=== PATIENT | male | born 1980 | race Caucasian/White ===

== ENCOUNTER 2020-06-30 12:44 | Emergency (ER) | payer MEDICAID, OTHER, SELFPAY ==
[2020-06-30 13:51] VITALS: BP 175/95; PULSE 88; RESP 18; TEMP 37.1; O2SAT 97; BMI 26.6
--- NOTE | 2020-06-30 14:07 | US_ITS ---
EXAMINATION: US ABDOMEN COMPLETE CLINICAL INFORMATION: [Abdominal/flank pain.. COMPARISON: None TECHNIQUE: Real-time imaging of the abdominal viscera. FINDINGS: PANCREAS: Normal. ABDOMINAL AORTA: The proximal, mid, and distal segments are normal in caliber. INFERIOR VENA CAVA: Visualized portions are normal. LIVER: The liver is normal in size. The liver contour is normal. Parenchymal echogenicity is diffusely increased. No focal hepatic lesion. There is no intrahepatic biliary duct dilatation seen. GALLBLADDER: There are small echogenic mobile gallstones without wall thickening. COMMON BILE DUCT: Normal in caliber measuring 0.35 cm in diameter. RIGHT KIDNEY: Normal. No hydronephrosis. No renal calculi or focal parenchymal lesions. The kidney measures 12.9 cm in maximum dimension. LEFT KIDNEY: Normal. No hydronephrosis. No renal calculi or focal parenchymal lesions. The kidney measures 14.1 cm in maximum dimension. SPLEEN: Normal. The spleen measures 14.3 cm in maximum dimension. There is a small splenule measuring 2.5 x 2.2 x 2.3 cm. FREE FLUID: None. US/US abdomen complete IMPRESSION: Diffuse hepatic steatosis without focal lesion. No focal lesion or intrahepatic ductal dilatation. Cholelithiasis without wall thickening. Small accessory splenule measuring 2.5 cm. Rest of the abdominal ultrasound is unremarkable.
[2020-06-30 14:37] LABS: Basophils Absolute Auto 0.1 X10*3/uL (0.0-0.2); Basophils Percent Auto 0.8 % (0-2); Eosinophils Absolute Auto 0.1 X10*3/uL (0.0-0.4); Eosinophils Percent Auto 1.6 % (0-4); Hematocrit 40.6 % (42-52); Hemoglobin 13.7 g/dl (14.0-18.0); Imm Gran Abs Auto 0.02 X10*3/uL (0.00-0.03); Imm Gran Pct Auto 0.3 % (0.0-0.4); Lymphocytes Absolute Auto 2.4 X10*3/uL (1.2-4.9); Lymphocytes Percent Auto 37.4 % (20-40); MANUAL DIFF FLAG NO; Mean Corpuscular HGB Conc 33.7 g/dl (31.0-36.0); Mean Corpuscular Hemoglobin 29.6 pg (27.0-33.0); Mean Corpuscular Volume 87.7 fL (80-98); Mean Platelet Volume 9.8 fL (9.4-12.4); Monocytes Absolute Auto 0.4 X10*3/uL (0.1-1.2); Monocytes Percent Auto 6.4 % (2-11); Neutrophils Absolute Auto 3.5 X10*3/uL (2.0-8.3); Neutrophils Percent Auto 53.5 % (45-73); Platelet Count 179 X10*3/uL (160-400); Red Blood Count 4.63 X10*6/uL (4.60-5.80); White Blood Count 6.4 X10*3/uL (4.8-10.8)
--- NOTE | 2020-06-30 14:38 | PC.NURSE ---
labs drawn pt sent to us
--- NOTE | 2020-06-30 14:41 | PC.NURSE ---
PT TO RADIOLOGY
[2020-06-30 15:08] LABS: Alanine Aminotransferase 55 U/L (0-40); Albumin Level 4.6 g/dL (3.5-5.0); Alkaline Phosphatase 91 U/L (39-117); Anion Gap 13 (12-20); Aspartate Amino Transferase 44 U/L (5-37); Bilirubin Total 1.4 mg/dL (0.0-1.0); Blood Urea Nitrogen 13 mg/dL (9-16); Calcium 9.2 mg/dL (8.4-10.2); Carbon Dioxide 25 mmol/L (22-29); Chloride 105 mmol/L (96-108); Estimated Glomerular Filt Rate > 60; Glucose Random 130 mg/dL (60-115); Potassium 3.9 mmol/l (3.3-5.1); Sodium 139 mmol/L (135-145); Total Protein 7.9 g/dL (6.5-8.0)
--- NOTE | 2020-06-30 15:34 | ED.ABDPAIN ---
HPI - Abdominal Pain General Chief Complaint: Abdominal Pain Stated Complaint: abd pain Time Seen by Provider: 06/30/20 14:07 Source: patient Mode of arrival: ambulatory Limitations: no limitations History of Present Illness HPI narrative: This is a pleasant 40-year-old primarily Urdu-speaking male who is from [facility] reports to me that he is a former drinker drink regularly up until about a year and half ago he has been sober since and has been doing well otherwise reports over the past 4 months or so has been having intermittent upper abdominal pain in the epigastrium that feels like aching pressure sometimes sometimes feel bloated after eating. States eating is only thing that makes it worse and sometimes it does feel like it is burning like sensation. There are no other aggravating factors. Alleviating factors include decreased p.o. intake otherwise he has not tried any OTC. He denies any nausea vomiting or diarrhea. No fever. Again history of alcohol intake but has been sober for over a year. MD elicited complaint: abdominal pain Pertinent past history: none Onset (ago): month(s) Pain Consistency: intermittent Location: epigastric Severity: moderate Quality: burning and other Radiation: none Migration to: no migration Exacerbating factors: eating Relieving factors: rest Associated symptoms: denies other symptoms Related Data Previous Rx's Medication Instructions Recorded omeprazole magnesium [Prilosec OTC] 20 mg PO BID #14 tab 06/30/20 Allergies Allergy/AdvReac Type Severity Reaction Status Date / Time No Known Allergies Allergy Verified 06/30/20 14:07 Review of Systems Review of Systems Constitutional: No Weight loss, No Fever, No Chills, No Night Sweats, No Fatigue, No Malaise ENT/Mouth: No Hearing loss, No Ear Pain, No Nasal Congestion, No Sinus Pain, No Hoarseness, No sore throat, No Rhinorrhea, No Swallowing Difficulty Eyes: No Eye Pain, No Swelling, No Redness, No Foreign Body, No Discharge, No Vision Changes Cardiovascular: No Chest Pain, No SOB, No Dyspnea on Exertion, No Orthopnea, No Edema, No Palpitations Respiratory: No Cough, No Sputum, No Wheezing, No Smoke Exposure, No Dyspnea Gastrointestinal: As noted HPI, No Hematochezia, No Melena Genitourinary: No Dysuria, No Urinary Frequency, No Hematuria, No Urinary Incontinence, No Urgency, No Flank Pain, No Urinary Flow Changes, No Hesitancy Musculoskeletal: No joint pain, No Myalgias, No Joint Swelling Skin: No Skin Lesions, No rash Neuro: No Weakness, No Numbness, No Paresthesias, No Loss of Consciousness, No Dizziness, No Headache Psych: No Anxiety/Panic, No Depression Heme/Lymph: No Bruising, No Bleeding,No Lymphadenopathy Endocrine: No Polyuria, No Polydipsia, No Temperature Intolerance Yes all other systems are reviewed and are negative Physical Exam Vital Signs: Vital Signs: Last Vital Signs Temp 98.7 F 06/30/20 15:42 Pulse 86 06/30/20 15:42 Resp 16 06/30/20 15:42 BP 160/95 H 06/30/20 15:42 Pulse Ox 96 06/30/20 15:42 Body Mass Index 26.6 Reviewed Const: General: cooperative and comfortable; No acute distress or intoxicated appearing Nutritional Appearance: average body habitus Orientation/consciousness: patient oriented x3 HENMT: Head: Yes normal to inspection Ears: hearing grossly normal bilaterally Eyes: General: appearance normal, both eyes and all related structures Visual Benz: normal visual benz by confrontation Neck: Neck: Yes normal visual inspection and No tender Thyroid: Thyroid normal Chest: Chest palpation & inspection: normal inspection of the chest Resp: Effort & Inspection: normal respiratory effort Cardio: Jugular venous distension: no JVD Rhythm: regular rhythm GI: Inspection: Yes normal to inspection Palpation (GI): Soft to palpation, not firm, nontender, no guarding, hepatosplenomegaly present, no hepatosplenomegaly, no masses, no pulsatile masses, no aortic enlargement, No Ascites present and No Rebound tenderness present Percussion: Yes normal to percussion Auscultation: normal bowel sounds : General: Yes no CVA tenderness Back/Spine/Pelvis: Back: no CVA tenderness Skin: General skin exam: no rashes or lesions noted Neuro: General: patient oriented x3 Extrem: General: Yes normal to inspection MDM - Abdominal Pain MDM Narrative Medical decision making narrative: left shows slight elevation in the AST / ALT consistent with his prior alcohol history otherwise labs stable. Ultrasound with no acute findings. Will start on short course PPI with instructions follow-up with GI. He does tell me that he does not have a primary care currently a list was provided for or PCP septic new patients. Patient agreeable. Stable for discharge. Differential Diagnosis Differential diagnosis: Likely abdominal pain and gastritis; Unlikely aortic dissection, acute appendicitis, bowel perforation, calculus of kidney, constipation, diverticulitis, gastroenteritis, mesenteric ischemia, pancreatitis and small bowel obstruction Lab Data Result diagrams: 06/30/20 14:32 06/30/20 14:32 Labs: Lab Results 06/30/20 06/30/20 06/30/20 Range/Units 14:32 14:32 15:44 WBC 6.4 (4.8-10.8) X10*3/uL RBC 4.63 (4.60-5.80) X10*6/uL Hgb 13.7 L (14.0-18.0) g/dl Hct 40.6 L (42-52) % MCV 87.7 (80-98) fL MCH 29.6 (27.0-33.0) pg MCHC 33.7 (31.0-36.0) g/dl RDW 13.0 (11.0-16.0) % Plt Count 179 (160-400) X10*3/uL MPV 9.8 (9.4-12.4) fL Immature Gran % (Auto) 0.3 (0.0-0.4) % Neut % (Auto) 53.5 (45-73) % Lymph % (Auto) 37.4 (20-40) % [place] % (Auto) 6.4 (2-11) % Eos % (Auto) 1.6 (0-4) % Baso % (Auto) 0.8 (0-2) % Lymph # (Auto) 2.4 (1.2-4.9) X10*3/uL [place] # (Auto) 0.4 (0.1-1.2) X10*3/uL Eos # (Auto) 0.1 (0.0-0.4) X10*3/uL Baso # (Auto) 0.1 (0.0-0.2) X10*3/uL Abs Immat Gran (auto) 0.02 (0.00-0.03) X10*3/uL Absolute Neuts (auto) 3.5 (2.0-8.3) X10*3/uL Absolute Nucleated RBC 0.000 (0.0-0.012) X10*3/uL Nucleated RBC % (auto) 0.0 (0.0-0.2) /100WBC Sodium 139 (135-145) mmol/L Potassium 3.9 (3.3-5.1) mmol/l Chloride 105 (96-108) mmol/L Carbon Dioxide 25 (22-29) mmol/L Anion Gap 13 (12-20) BUN 13 (9-16) mg/dL Creatinine 0.78 (0.5-1.4) mg/dL Estim Creat Clear Calc 123.0 Estimated GFR > 60 Random Glucose 130 H (60-115) mg/dL Calcium 9.2 (8.4-10.2) mg/dL Total Bilirubin 1.4 H (0.0-1.0) mg/dL AST 44 H (5-37) U/L ALT 55 H (0-40) U/L Alkaline Phosphatase 91 (39-117) U/L Total Protein 7.9 (6.5-8.0) g/dL Albumin 4.6 (3.5-5.0) g/dL Urine Color YELLOW Urine Appearance CLEAR Urine pH 8.5 H (5.0-8.0) Ur Specific [place] 1.015 (1.005-1.025) Urine Protein NEG (NEG-TRACE) MG/DL Urine Glucose (UA) NEG (NEG) MG/DL Urine Ketones NEG (NEG) MG/DL Urine Blood NEG (NEG) Urine Nitrite NEG (NEG) Ur Leukocyte Esterase NEG (NEG) Urine RBC 0 (0) /HPF Urine WBC 0 (0-4) /HPF Ur Squamous Epith Cells TRACE /LPF Amorphous Sediment 2+ /LPF Urine Bacteria NONE /LPF Discharge Plan Discharge Clinical Impression: Gastroesophageal reflux disease, Upper abdominal pain Patient Disposition: Home, Self-Care Instructions: Abdominal Pain (ED) Additional Instructions: Follow home care instructions reviewed Follow up with her primary care doctor as discussed Follow-up with GI doctor discussed Start short course of the antacid medication prescribed Return if any concerns or worsening symptoms Thank you Prescriptions: New omeprazole magnesium [Prilosec OTC] 20 mg tablet,delayed release (DR/EC) 20 mg PO BID Qty: 14 RF: 0 Referrals: Babita Lal MD [Physician] - 2 weeks Physician,None [Primary Care Provider] - 1 week (Primary care doctor List provided ) Interventions: ED Discharge Assessment Last Done: 06/30/20 17:15 Discharge Date/Time: 06/30/20 17:15 [facility] Past Medical History Medical History No significant past medical history Social History Social History Alcohol intake: former Smoking Status: Current every day smoker Use of substances other than those prescribed or required for medical reasons: No Advance Directives: No Advance Directives Information Provided: No
[2020-06-30 15:42] VITALS: BP 160/95; PULSE 86; RESP 16; TEMP 37.1; O2SAT 96
[2020-06-30 15:59] LABS: Appearance Urine CLEAR; Color Urine YELLOW; Glucose Urine UA NEG (NEG); Leukocyte Esterase Urine NEG (NEG); Nitrite Urine NEG (NEG); PH 8.5 (5.0-8.0); Specific Gravity - Urine 1.015 (1.005-1.025); Urine Blood NEG (NEG); Urine Ketones NEG (NEG); Urine Protein NEG (NEG-TRACE)
[2020-06-30 16:53] LABS: RBC Urine 0 /HPF (0); Squamous Epithelial Cell Urine TRACE /LPF; WBC Urine 0 /HPF (0-4)
[2020-06-30 16:54] LABS: Amorphous Sediment Urine 2+ /LPF
== END 2020-06-30 17:15 | disposition home or self-care (01) ==
PROVIDERS: Nurse Practitioner Primary Care; Emergency Provider Emergency Medicine Emergency Medical Services
DX: K21.9 Gastro-esophageal reflux disease without esophagitis (principal); F17.200 Nicotine dependence, unspecified, uncomplicated
CPT/HCPCS: 36415; 76700; 80053; 81001; 85025; 99284

== ENCOUNTER 2022-10-17 15:41 | Emergency (ER) | payer OTHER, MEDICAID, SELFPAY ==
--- NOTE | ~2022-10-17 | CT_ITS ---
EXAMINATION: CT HEAD WITHOUT CONTRAST CLINICAL INFORMATION: Hypertension and headache. COMPARISON: None. TECHNIQUE: Contiguous axial imaging was performed from the skullbase to vertex without intravenous administration of contrast. This CT examination was performed using dose optimization techniques as appropriate, variously including the following: *Automated exposure control *Adjustment of mA and/or kV according to patient size (this includes techniques or standardized protocols for targeted exams where dose is matched to indication/reason for exam; i.e. extremities or head) *Use of iterative reconstruction technique DLP: 901 mGy-cm. FINDINGS: There is no evidence of acute intracranial hemorrhage or territorial infarction. No abnormal mass effect or midline shift is seen. Pedro to white matter differentiation is well preserved. No extra-axial fluid collections are identified. The ventricles are normal in size. There is no abnormal attenuation within the brain parenchyma. The osseous structures and soft tissues are normal. The mastoid air cells and visualized portions of the paranasal sinuses are fairly well aerated. CT/CT head/brain wo IV con IMPRESSION: No acute intracranial pathology.
--- NOTE | 2022-10-17 16:00 | ECG_ITS ---
Test Reason : HYPERTENSION Blood Pressure : / mmHG Vent. Rate : 068 BPM Atrial Rate : 068 BPM P-R Int : 188 ms QRS Dur : 110 ms QT Int : 376 ms P-R-T Axes : 008 -33 021 degrees QTc Int : 399 ms Normal sinus rhythm Left axis deviation Incomplete right bundle branch block Minimal voltage criteria for LVH, may be normal variant ( Ernesto product ) Abnormal ECG No previous ECGs available Referred By: Miguel Paula Electronically Signed By:LINCOLN ZARATE MD
--- NOTE | 2022-10-17 16:03 | ED.GENADULT ---
HPI - General Adult General Chief complaint: Headache <HODAN Arreola - Last Filed: 10/17/22 16:07> Stated complaint: high blood pressure/ headache <HODAN Arreola - Last Filed: 10/17/22 16:07> Time Seen by Provider: 10/17/22 21:45 <HODAN Arreola - Last Filed: 10/17/22 16:07> Source: patient <Ilda Currie NP - Last Filed: 10/18/22 01:48> Mode of arrival: ambulatory <Ilda Currie NP - Last Filed: 10/18/22 01:48> Limitations: language barrier <Ilda Currie NP - Last Filed: 10/18/22 01:48> History of Present Illness HPI narrative: 42-year-old male presents with 3 weeks of a headache and suspected elevated blood pressures with blurred vision. Patient states he is having a hard time focusing his eyes. Patient is Arabic-speaking, and does not have a primary care physician at this time. Does not report any other concerns, and denies chest pain or pressure, palpitations, shortness of breath, fevers, chills, loss of balance and weakness. <Ilda Currie NP - Last Filed: 10/18/22 01:48> Onset (ago): week(s) (3) <Ilda Currie NP - Last Filed: 10/18/22 01:48> Location: head and eyes <Ilda Currie NP - Last Filed: 10/18/22 01:48> Radiation: non-radiation <Ilda Currie NP - Last Filed: 10/18/22 01:48> Severity: mild <Ilda Currie NP - Last Filed: 10/18/22 01:48> Severity scale (1-10): 3 <Ilda Currie NP - Last Filed: 10/18/22 01:48> Quality: aching <Ilda Currie NP - Last Filed: 10/18/22 01:48> Pain Consistency: constant <Ilda Currie NP - Last Filed: 10/18/22 01:48> Relieving factors: none <Ilda Currie NP - Last Filed: 10/18/22 01:48> Associated symptoms: denies other symptoms <Ilda Currie NP - Last Filed: 10/18/22 01:48> Treatments prior to arrival: NSAID and other (Tylenol) <Ilda Currie NP - Last Filed: 10/18/22 01:48> Related Data Home medications: Previous Rx's Medication Instructions Recorded omeprazole magnesium 20 mg 20 mg PO BID #14 tabs 06/30/20 tablet,delayed release (Prilosec OTC) lisinopril 5 mg tablet 5 mg PO DAILY #30 tabs 10/17/22 <HODAN Arreola - Last Filed: 10/17/22 16:07> Allergies/adverse reactions: Allergies Allergy/AdvReac Type Severity Reaction Status Date / Time No Known Allergies Allergy Verified 06/30/20 14:07 <HODAN Arreola Last Filed: 10/17/22 16:07> Review of Systems Review of Systems: Constitutional: No Fever, No Chills ENT/Mouth: No Ear Pain, No Hoarseness, No sore throat Eyes: Intermittently resolved blurred Eye Pain, No Swelling, No Redness, No Foreign Body Cardiovascular: No Chest Pain, No SOB Respiratory: No Cough, No Dyspnea Gastrointestinal: No Nausea, No Vomiting, No Diarrhea, No abdominal Pain Genitourinary: No Dysuria, No Hematuria Musculoskeletal: No joint pain, No Myalgias, No Joint Swelling Skin: No Skin lacerations, No rash Neuro: No Weakness, No Numbness, No Paresthesias, No Dizziness, although Headache <Ilda Currie NP - Last Filed: 10/18/22 01:48> Yes all other systems are reviewed and are negative <Ilda Currie NP - Last Filed: 10/18/22 01:48> PMFSH Past Medical History Attestation statement: The following information was validated with the patient. <Ilda Currie NP - Last Filed: 10/18/22 01:48> Source: old records reviewed <Ilda Currie NP - Last Filed: 10/18/22 01:48> Medical History: Medical History No significant past medical history <HODAN Arreola - Last Filed: 10/17/22 16:07> Social History Social History: Social History Alcohol intake: former Advance Directives: No Advance Directives Information Provided: No <HODAN Arreola - Last Filed: 10/17/22 16:07> Physical Exam ED Vital Signs: Vital Signs - 24 hr 10/17/22 16:04 10/17/22 21:05 Temperature 98.0 F Pulse Rate 79 64 Respiratory Rate 17 16 Blood Pressure 172/91 H 166/96 H Pulse Oximetry 99 99 Oxygen Delivery Method Room Air Room Air BMI result Body Mass Index 32.8 <HODAN Arreola - Last Filed: 10/17/22 16:07> Vital Signs - 24 hr 10/17/22 16:04 10/17/22 21:05 Temperature 98.0 F Pulse Rate 79 64 Respiratory Rate 17 16 Blood Pressure 172/91 H 166/96 H Pulse Oximetry 99 99 Oxygen Delivery Method Room Air Room Air BMI result Body Mass Index 32.8 <Ilda Currie NP - Last Filed: 10/18/22 01:48> Appearance: Alert. Oriented X3. No acute distress. Eyes: Pupils equal, round and reactive to light. ENT: Pharynx normal. Neck: Normal inspection. Neck supple. CVS: Normal heart rate and rhythm. Pulses normal. Respiratory: No respiratory distress. Breath sounds normal. Skin: Skin warm and dry. Normal skin color. Normal skin turgor. Extremities: No lower extremity edema. Ate well balanced well coordinated. Neuro: No motor deficit. No sensory deficit. Cranial nerves 2-12 intact <Ilda Currie NP - Last Filed: 10/18/22 01:48> Course Course Course Narrative: This is an RME: Additional HPI, ROS, PE not included below will be deferred to primary provider. 42 year old male hx of GERD presents to the ED for evaluation of headache (diffuse) x3 weeks, patient thinks he may have high blood pressure. When his head hurts he reports his vision changes and he has a hard time focusing in on an object. At times feels lightheaded. Denies fevers, chills, nausea, vomiting, headache, vision changes, chest pain, shortness of breath. Last saw a doctor 1 year ago he tells me Physical exam benign. NIH stroke scale 0. Plan- head ct, basic labs. <HODAN Arreola - Last Filed: 10/17/22 16:07> This is an RME: Additional HPI, ROS, PE not included below will be deferred to primary provider. 42 year old male hx of GERD presents to the ED for evaluation of headache (diffuse) x3 weeks, patient thinks he may have high blood pressure. When his head hurts he reports his vision changes and he has a hard time focusing in on an object. At times feels lightheaded. Denies fevers, chills, nausea, vomiting, headache, vision changes, chest pain, shortness of breath. Last saw a doctor 1 year ago he tells me Physical exam benign. NIH stroke scale 0. Plan- head ct, basic labs. 22:00 CT scan of head is negative for acute findings requiring emergent intervention. NIH stroke scale is 0. Even unlabored respirations. Cranial nerves 2-12 intact. Patient reports to have 3 weeks of headaches, with intermittently blurred vision when his headaches other worst, and elevated blood pressure. He does not have a primary care physician, and needs to be established. Lab values are unremarkable. Plan of care is to treat with lisinopril 5 mg daily. I did advise this patient to take his blood pressure on a daily basis, and keep a log of these numbers to present to the primary care. Considering that this patient has not have primary care and is requesting to be established with [facility], I have referred him to Dr. Lyons. Patient does understand that it may take several months to become established with a primary care physician. I will provided 3 refills for lisinopril, patient does understand that he can present at any facility for further care however presenting to the urgent care would be his best option interpreter and translator utilized for all correspondence. Google translate utilized for discharge instructions. Patient verbalized understanding of and agrees to plan of care discharge home. Verbalized understanding of signs and symptoms indicating need for emergent intervention. <Ilda Currie NP - Last Filed: 10/18/22 01:48> Medications Administered Discontinued Medications Generic Name Dose Route Start Last Admin Trade Name Chayito PRN Reason Stop Dose Admin Ketorolac Tromethamine 30 mg 10/17/22 16:07 10/17/22 19:43 Ketorolac Tromethamine 15 Mg/Ml Vial IM 10/17/22 16:08 30 mg ONCE ONE Administration <HODAN Arreola - Last Filed: 10/17/22 16:07> Medications Administered Discontinued Medications Generic Name Dose Route Start Last Admin Trade Name Chayito PRN Reason Stop Dose Admin Ketorolac Tromethamine 30 mg 10/17/22 16:07 10/17/22 19:43 Ketorolac Tromethamine 15 Mg/Ml Vial IM 10/17/22 16:08 30 mg ONCE ONE Administration <Ilda Currie NP - Last Filed: 10/18/22 01:48> Medical Decision Making Differential Diagnosis Differential Diagnoses: The differential diagnosis associated with the presentation includes <Ilda Currie NP - Last Filed: 10/18/22 01:48> Hypertension, migraine, CVA, subdural <Ilda Currie NP - Last Filed: 10/18/22 01:48> Lab Data MDM Lab Attestation statement: I reviewed the patient's lab results. <Ilda Currie NP - Last Filed: 10/18/22 01:48> Result Diagrams: 10/17/22 16:38 10/17/22 16:38 <HODAN Arreola - Last Filed: 10/17/22 16:07> Labs: Lab Results 10/17/22 10/17/22 Range/Units 16:38 16:38 WBC 5.9 (4.8-10.8) X10*3/uL RBC 4.47 L (4.60-5.80) X10*6/uL Hgb 13.6 L (14.0-18.0) g/dl Hct 39.7 L (42.0-52.0) % MCV 88.8 (80.0-98.0) fL MCH 30.4 (27.0-33.0) pg MCHC 34.3 (31.0-36.0) g/dl RDW 12.5 (11.0-16.0) % Plt Count 181 (160-400) X10*3/uL MPV 9.5 (9.4-12.4) fL Immature Gran % (Auto) 0.2 (0.0-0.4) % Neut % (Auto) 39.5 L (45-73) % Lymph % (Auto) 52.5 H (20-40) % Z[place] % (Auto) 5.4 (2-11) % Eos % (Auto) 1.7 (0-4) % Baso % (Auto) 0.7 (0-2) % Lymph # (Auto) 3.1 (1.2-4.9) X10*3/uL [place] # (Auto) 0.3 (0.1-1.2) X10*3/uL Eos # (Auto) 0.1 (0.0-0.4) X10*3/uL Baso # (Auto) 0.0 (0.0-0.2) X10*3/uL Abs Immat Gran (auto) 0.01 (0.00-0.03) X10*3/uL Absolute Neuts (auto) 2.3 (2.0-8.3) x10*3/uL Absolute Nucleated RBC 0.000 (0.0-0.012) X10*3/uL Nucleated RBC % (auto) 0.0 (0.0-0.2) /100WBC Sodium 140 (135-145) mmol/L Potassium 4.1 (3.3-5.1) mmol/L Chloride 107 (96-108) mmol/L Carbon Dioxide 22 (22-29) mmol/L Anion Gap 15 (12-20) BUN 13 (9-16) mg/dL Creatinine 0.77 (0.5-1.4) mg/dL Estim Creat Clear Calc 138.8 Estimated GFR > 60 Random Glucose 94 (60-115) mg/dL Calcium 9.4 (8.4-10.2) mg/dL Magnesium 2.1 (1.6-2.6) mg/dL Total Bilirubin 0.7 (0.0-1.0) mg/dL AST 43 H (5-37) U/L ALT 45 H (0-40) U/L Alkaline Phosphatase 61 (39-117) U/L Total Protein 7.3 (6.5-8.0) g/dL Albumin 4.6 (3.5-5.0) g/dL <HODAN Arreola - Last Filed: 10/17/22 16:07> Lab Results 10/17/22 10/17/22 Range/Units 16:38 16:38 WBC 5.9 (4.8-10.8) X10*3/uL RBC 4.47 L (4.60-5.80) X10*6/uL Hgb 13.6 L (14.0-18.0) g/dl Hct 39.7 L (42.0-52.0) % MCV 88.8 (80.0-98.0) fL MCH 30.4 (27.0-33.0) pg MCHC 34.3 (31.0-36.0) g/dl RDW 12.5 (11.0-16.0) % Plt Count 181 (160-400) X10*3/uL MPV 9.5 (9.4-12.4) fL Immature Gran % (Auto) 0.2 (0.0-0.4) % Neut % (Auto) 39.5 L (45-73) % Lymph % (Auto) 52.5 H (20-40) % Zapata % (Auto) 5.4 (2-11) % Eos % (Auto) 1.7 (0-4) % Baso % (Auto) 0.7 (0-2) % Lymph # (Auto) 3.1 (1.2-4.9) X10*3/uL [place] # (Auto) 0.3 (0.1-1.2) X10*3/uL Eos # (Auto) 0.1 (0.0-0.4) X10*3/uL Baso # (Auto) 0.0 (0.0-0.2) X10*3/uL Abs Immat Gran (auto) 0.01 (0.00-0.03) X10*3/uL Absolute Neuts (auto) 2.3 (2.0-8.3) x10*3/uL Absolute Nucleated RBC 0.000 (0.0-0.012) X10*3/uL Nucleated RBC % (auto) 0.0 (0.0-0.2) /100WBC Sodium 140 (135-145) mmol/L Potassium 4.1 (3.3-5.1) mmol/L Chloride 107 (96-108) mmol/L Carbon Dioxide 22 (22-29) mmol/L Anion Gap 15 (12-20) BUN 13 (9-16) mg/dL Creatinine 0.77 (0.5-1.4) mg/dL Estim Creat Clear Calc 138.8 Estimated GFR > 60 Random Glucose 94 (60-115) mg/dL Calcium 9.4 (8.4-10.2) mg/dL Magnesium 2.1 (1.6-2.6) mg/dL Total Bilirubin 0.7 (0.0-1.0) mg/dL AST 43 H (5-37) U/L ALT 45 H (0-40) U/L Alkaline Phosphatase 61 (39-117) U/L Total Protein 7.3 (6.5-8.0) g/dL Albumin 4.6 (3.5-5.0) g/dL <CHET No Last Filed: 10/18/22 01:48> Independent Interpretation I performed an independent interpretation of an: EKG and CT Scan <Ilda Currie NP - Last Filed: 10/18/22 01:48> Interpretation: Normal sinus rhythm Left axis deviation Incomplete right bundle branch block Minimal voltage criteria for LVH, may be normal variant ( [place] product ) Abnormal ECG No previous ECGs available Vent. rate 68 BPM AZ interval 188 ms QRS duration 110 ms QT/QTc 376/399 ms P-R-T axes 8 -33 17-Oct-2022 16:32:07 <Ilda Currie NP - Last Filed: 10/18/22 01:48> Radiology Impression Discussion of test interpretation with radiology: I have reviewed the radiologist's reading. <CHET No Last Filed: 10/18/22 01:48> Radiologist Impression: EXAMINATION: CT HEAD WITHOUT CONTRAST CLINICAL INFORMATION: Hypertension and headache. COMPARISON: None. TECHNIQUE: Contiguous axial imaging was performed from the skullbase to vertex without intravenous administration of contrast. This CT examination was performed using dose optimization techniques as appropriate, variously including the following: *Automated exposure control *Adjustment of mA and/or kV according to patient size (this includes techniques or standardized protocols for targeted exams where dose is matched to indication/reason for exam; i.e. extremities or head) *Use of iterative reconstruction technique DLP: 901 mGy-cm. FINDINGS: There is no evidence of acute intracranial hemorrhage or territorial infarction. No abnormal mass effect or midline shift is seen. Pedro to white matter differentiation is well preserved. No extra-axial fluid collections are identified. The ventricles are normal in size. There is no abnormal attenuation within the brain parenchyma. The osseous structures and soft tissues are normal. The mastoid air cells and visualized portions of the paranasal sinuses are fairly well aerated. CT/CT head/brain wo IV con IMPRESSION: No acute intracranial pathology. <Ilda Currie NP - Last Filed: 10/18/22 01:48> External Record Review External record reviewed: Outpatient record, Prior outpatient labs and Prior outpatient radiology <Ilda Currie NP - Last Filed: 10/18/22 01:48> Prescription Management I considered prescription management with: Other (TARIQ-inhibitor) <Ilda Currie NP - Last Filed: 10/18/22 01:48> Chronic Conditions Patient?s care impacted by: Hypertension <Ilda Currie NP - Last Filed: 10/18/22 01:48> Discharge Plan Discharge Clinical Impression: Headache, Hypertension <HODAN Arreola - Last Filed: 10/17/22 16:07> Patient Disposition: Home, Self-Care <HODAN Arreola - Last Filed: 10/17/22 16:07> Instructions: Acute Headache (ED), Hypertension (ED) <HODAN Arreola Last Filed: 10/17/22 16:07> Additional Instructions: Usted fue evaluado por dolor de ángel y presi?n arterial elevada. La tomograf?a computarizada de la ángel es negativa para hallazgos agudos que requieren shiraz intervenci?n urgente. [place] lisinopril 5 mg al d?a. Te he dado 3 recargas. Debe hacer un seguimiento con el m?dico de atenci?n primaria. Lo he referido al Dr. Lyons en el [facility] en [address] en [facility]. Es posible que le tome varios meses llegar a shiraz nish. Puede acudir a atenci?n de urgencia seg?n sea necesario, para reposici?n de medicamentos. Althea por elegir frank departamento de emergencias para franco evaluaci?n. Por favor, jose un seguimiento con el m?dico de atenci?n primaria seg?n sea necesario. Regrese al departamento de emergencias por cualquier s?ntoma nuevo, preocupante o que empeore. You were evaluated for headache and elevated blood pressure. CT scan of the head are negative for acute findings requiring emergent intervention. Please take lisinopril 5 mg daily. I Have given you 3 refills. You must follow-up with the primary care physician. I have referred you to Dr. Lyons at the [facility] on [facility] in [facility]. It may take several months for you to get into an appointment. You may present to urgent care as needed, for medication refills. Thank you for choosing this emergency department for evaluation. Please follow-up with primary care physician as needed. Return to the emergency department for any new, concerning, or worsening symptoms. <HODAN Arreola - Last Filed: 10/17/22 16:07> Prescriptions: New lisinopril 5 mg tablet 5 mg PO DAILY Qty: 30 3RF No Action omeprazole magnesium [Prilosec OTC] 20 mg tablet,delayed release (DR/EC) 20 mg PO BID Qty: 14 0RF <HODAN Arreola - Last Filed: 10/17/22 16:07> Referrals: Devin Lyons MD [Physician] - 2 weeks (Establish primary care) <HODAN Arreola - Last Filed: 10/17/22 16:07> Interventions: ED Discharge Assessment Last Done: 10/17/22 23:01 <HODAN Arreola - Last Filed: 10/17/22 16:07> Discharge Date/Time: 10/17/22 23:03 <HODAN Arreola - Last Filed: 10/17/22 16:07>
[2022-10-17 16:04] VITALS: BP 172/91; PULSE 79; RESP 17; TEMP 36.7; O2SAT 99; BMI 32.8
[2022-10-17 16:42] LABS: MANUAL DIFF FLAG NO
[2022-10-17 16:50] LABS: Basophils Percent Auto 0.7 % (0-2); Eosinophils Absolute Auto 0.1 X10*3/uL (0.0-0.4); Eosinophils Percent Auto 1.7 % (0-4); Hematocrit 39.7 % (42.0-52.0); Hemoglobin 13.6 g/dl (14.0-18.0); Imm Gran Abs Auto 0.01 X10*3/uL (0.00-0.03); Imm Gran Pct Auto 0.2 % (0.0-0.4); Lymphocytes Absolute Auto 3.1 X10*3/uL (1.2-4.9); Lymphocytes Percent Auto 52.5 % (20-40); Mean Corpuscular HGB Conc 34.3 g/dl (31.0-36.0); Mean Corpuscular Hemoglobin 30.4 pg (27.0-33.0); Mean Corpuscular Volume 88.8 fL (80.0-98.0); Mean Platelet Volume 9.5 fL (9.4-12.4); Monocytes Absolute Auto 0.3 X10*3/uL (0.1-1.2); Monocytes Percent Auto 5.4 % (2-11); Neutrophils Absolute Auto 2.3 x10*3/uL (2.0-8.3); Neutrophils Percent Auto 39.5 % (45-73); Platelet Count 181 X10*3/uL (160-400); Red Blood Count 4.47 X10*6/uL (4.60-5.80); Red Cell Distribution Width 12.5 % (11.0-16.0); White Blood Count 5.9 X10*3/uL (4.8-10.8)
[2022-10-17 16:58] LABS: Alanine Aminotransferase 45 U/L (0-40); Albumin Level 4.6 g/dL (3.5-5.0); Alkaline Phosphatase 61 U/L (39-117); Anion Gap 15 (12-20); Aspartate Amino Transferase 43 U/L (5-37); Bilirubin Total 0.7 mg/dL (0.0-1.0); Blood Urea Nitrogen 13 mg/dL (9-16); Calcium 9.4 mg/dL (8.4-10.2); Carbon Dioxide 22 mmol/L (22-29); Chloride 107 mmol/L (96-108); Creatinine Clr Calc Pharmacy 138.8; Estimated Glomerular Filt Rate > 60; Glucose Random 94 mg/dL (60-115); Magnesium 2.1 mg/dL (1.6-2.6); Potassium 4.1 mmol/L (3.3-5.1); Sodium 140 mmol/L (135-145); Total Protein 7.3 g/dL (6.5-8.0)
[2022-10-17] MEDS: Ketorolac Tromethamine 15 MG/ML VIAL 30 MG IM (19:43)
[2022-10-17 21:05] VITALS: BP 166/96; PULSE 64; RESP 16; O2SAT 99
== END 2022-10-17 23:03 | disposition home or self-care (01) ==
PROVIDERS: Physician Assistant; Emergency Provider Emergency Medicine
DX: R51.9 Headache, unspecified (principal); I10 Essential (primary) hypertension; H53.8 Other visual disturbances; K21.9 Gastro-esophageal reflux disease without esophagitis
CPT/HCPCS: 36415; 70450; 80053; 83735; 85025; 93005; 96372; 99284; J1885

== ENCOUNTER 2023-10-09 09:32 | Emergency (ER) | payer OTHER, SELFPAY ==
--- NOTE | ~2023-10-09 | XR_ITS ---
EXAMINATION: XR CHEST CLINICAL INFORMATION: Chest tightness COMPARISON: None available. TECHNIQUE: 2 views of the chest were obtained. FINDINGS: Lungs are well-inflated and clear. Trachea is midline in position. No interstitial disease, consolidation or mass. No pleural effusion or pneumothorax. Cardiac silhouette and pulmonary vessels are normal in size. The mediastinum and angel have normal contour. The visualized bones and upper abdomen are unremarkable. XR/XR chest 2V IMPRESSION: Lungs have a normal appearance. No acute cardiopulmonary abnormality.
--- NOTE | 2023-10-09 09:38 | ECG_ITS ---
Test Reason : chest tightness Blood Pressure : / mmHG Vent. Rate : 067 BPM Atrial Rate : 067 BPM P-R Int : 192 ms QRS Dur : 118 ms QT Int : 378 ms P-R-T Axes : 000 -38 026 degrees QTc Int : 399 ms Normal sinus rhythm Left axis deviation Non-specific intra-ventricular conduction delay Minimal voltage criteria for LVH, may be normal variant ( [place] product ) Abnormal ECG When compared with ECG of 17-OCT-2022 16:32, No significant change was found Referred By: Generic ED Physician Electronically Signed By:LINCOLN ZARATE MD
[2023-10-09 09:55] VITALS: BP 165/108; PULSE 75; RESP 18; TEMP 36.8; O2SAT 99; BMI 34.3
[2023-10-09 10:11] LABS: MANUAL DIFF FLAG NO
[2023-10-09 10:15] LABS: Basophils Percent Auto 0.9 % (0-2); Eosinophils Percent Auto 0.7 % (0-4); Hematocrit 40.6 % (42.0-52.0); Hemoglobin 14.4 g/dl (14.0-18.0); Imm Gran Abs Auto 0.01 X10*3/uL (0.00-0.03); Imm Gran Pct Auto 0.2 % (0.0-0.4); Lymphocytes Absolute Auto 1.7 X10*3/uL (1.2-4.9); Lymphocytes Percent Auto 38.8 % (20-40); Mean Corpuscular HGB Conc 35.5 g/dl (31.0-36.0); Mean Corpuscular Hemoglobin 31.3 pg (27.0-33.0); Mean Corpuscular Volume 88.3 fL (80.0-98.0); Mean Platelet Volume 9.3 fL (9.4-12.4); Monocytes Absolute Auto 0.3 X10*3/uL (0.1-1.2); Monocytes Percent Auto 6.4 % (2-11); Neutrophils Absolute Auto 2.3 x10*3/uL (2.0-8.3); Platelet Count 199 X10*3/uL (160-400); Red Cell Distribution Width 12.4 % (11.0-16.0); White Blood Count 4.3 X10*3/uL (4.8-10.8)
[2023-10-09 10:25] LABS: Anion Gap 11 (12-20); Blood Urea Nitrogen 13 mg/dL (9-16); Calcium 9.8 mg/dL (8.4-10.2); Carbon Dioxide 25 mmol/L (22-29); Chloride 109 mmol/L (96-108); Creatinine Clr Calc Pharmacy 113.6; Estimated Glomerular Filt Rate > 60; Glucose Random 94 mg/dL (60-115); Potassium 3.7 mmol/L (3.3-5.1); Sodium 141 mmol/L (135-145)
[2023-10-09 10:37] LABS: Troponin-I High Sensitivity 37.2 ng/L (<3.5-35.0)
--- NOTE | 2023-10-09 10:57 | ED_ITS ---
HPI - Chest Pain General Chief Complaint: Chest Pain Stated Complaint: chest discomfort anxiety Time Seen by Provider: 10/09/23 10:56 Source: patient, old records reviewed and specialist icu Mode of arrival: ambulatory Limitations: no limitations History of Present Illness HPI narrative: 43 yo male with PMH of HTN, GERD has not been on his medications for a month or so reports 1+ month of feeling daily sweats, fevers and distress in the chest but not overt pain he wakes up like this every morning. He denies weight loss. He has no fam hx of lymphome or leukemia. He notes every night when he wakes up he feels hot and sweaty. He denies exertional symptoms. MD complaint: chest heaviness (distress, night sweats, fevers) Onset (ago): month(s) (1) Timing of current episode: episodic Prior episodes: No Onset: during rest Pain location: substernal Pain radiation: none Severity: mild Quality: tightness Relieving factors: nothing Exacerbating factors: stress and other (sleeping) Context: recent travel (started 2 months after return from [facility]) Associated symptoms: sense of impending doom and other (night sweats) Treatment prior to arrival: none Related Data Previous Rx's Medication Instructions Recorded omeprazole magnesium 20 mg 20 mg PO BID #14 tabs 06/30/20 tablet,delayed release (Prilosec OTC) lisinopril 5 mg tablet 5 mg PO DAILY #30 tabs 10/17/22 lisinopril 5 mg tablet 5 mg PO DAILY #90 tabs 10/18/22 lisinopril 5 mg tablet 5 mg PO DAILY #90 tabs 10/09/23 Allergies Allergy/AdvReac Type Severity Reaction Status Date / Time No Known Allergies Allergy Verified 06/30/20 14:07 Review of Systems 2 Review of Systems: Constitutional : No Weight loss, No Fever, pos Chills, pos sweats ENT/Mouth : No sore throat, No Rhinorrhea Eyes: No Eye Pain, No Swelling Cardiovascular : pos Chest Pain, no SOB, no Dyspnea on Exertion, No Orthopnea, No Edema, No Palpitations Respiratory : No Cough, No Sputum Gastrointestinal : pos Nausea, No Vomiting, No Diarrhea, No abdominal Pain, No Hematochezia, No Melena Genitourinary : No Dysuria, No Urinary Frequency Musculoskeletal : No joint pain, No Myalgias, No Joint Swelling Skin : No Skin Lesions, No rash Neuro : No Weakness, No Numbness, No Dizziness, No Headache Psych : pos Anxiety/Panic, No Depression All other systems reviewed and are negative [facility] Past Medical History Attestation statement: The following information was validated with the patient. Source: old records reviewed Medical History Hypertension Gastroesophageal reflux disease Social History Social History Alcohol intake: former Smoked in Last 30 Days: Yes Use of substances other than those prescribed or required for medical reasons: No Advance Directives: No Advance Directives Information Provided: No Physical Exam 2 Vital Signs: Vital Signs: Last Vital Signs Temp 97.8 F 10/09/23 13:06 Pulse 64 10/09/23 13:06 Resp 15 10/09/23 13:06 BP 135/90 H 10/09/23 13:06 Pulse Ox 100 10/09/23 13:06 O2 Del Method Room Air 10/09/23 13:06 BMI result Body Mass Index 34.3 Appearance: Alert. Oriented X3. No acute distress. Eyes: Pupils equal, round and reactive to light. ENT: Pharynx normal. Neck: Normal inspection. Neck supple. CVS: Normal heart rate and rhythm. Pulses normal. Respiratory: No respiratory distress. Breath sounds normal. Abdomen: Soft and nontender. Skin: Skin warm and dry. Normal skin color. Normal skin turgor. Extremities: No lower extremity edema. No calf ttp Neuro: Oriented X 3. No motor deficit. No sensory deficit. Course Course Course Narrative: case management is working out outpatient cardiology appointment Medical Decision Making Medical Decision Making MDM Narrative: 43 yo male with PMH of HTN, GERD here with c/o 1+ month of night sweats, feelin heat in the chest, fatigue worse when he wakes up in the AM. He is not compliant with medications. He notes it is every day when he wakes up he has no fam hx of lymphome or leukemia at this time will obtain basic labs, EKG, repeat troponin, CXR for mass. He denies exertional symptoms. Elevated troponin could be due to uncontrolled HTN. Symptoms are atypical for ACS given months duration and not related to exertion. PERC negative Differential Diagnosis Differential Diagnoses: The differential diagnosis associated with the presentation includes mass, viral syndrome, atypical chest pain, HTN Admission/Observation Consideration of admission/observation: Escalation of care including admission/observation considered 1 month of symptoms no acute findings trop flat at this time 1 month of symptoms it is not related to exertion continues to report symptoms at night PERC negative Lab Data MDM Lab Attestation statement: I reviewed the patient's lab results. 10/09/23 10:06 10/09/23 10:06 Labs: Lab Results 10/09/23 10/09/23 Range/Units 10:06 13:02 WBC 4.3 L (4.8-10.8) X10*3/uL RBC 4.60 (4.60-5.80) X10*6/uL Hgb 14.4 (14.0-18.0) g/dl Hct 40.6 L (42.0-52.0) % MCV 88.3 (80.0-98.0) fL MCH 31.3 (27.0-33.0) pg MCHC 35.5 (31.0-36.0) g/dl RDW 12.4 (11.0-16.0) % Plt Count 199 (160-400) X10*3/uL MPV 9.3 L (9.4-12.4) fL Immature Gran % (Auto) 0.2 (0.0-0.4) % Neut % (Auto) 53.0 (45-73) % Lymph % (Auto) 38.8 (20-40) % [place] % (Auto) 6.4 (2-11) % Eos % (Auto) 0.7 (0-4) % Baso % (Auto) 0.9 (0-2) % Lymph # (Auto) 1.7 (1.2-4.9) X10*3/uL [place] # (Auto) 0.3 (0.1-1.2) X10*3/uL Eos # (Auto) 0.0 (0.0-0.4) X10*3/uL Baso # (Auto) 0.0 (0.0-0.2) X10*3/uL Abs Immat Gran (auto) 0.01 (0.00-0.03) X10*3/uL Absolute Neuts (auto) 2.3 (2.0-8.3) x10*3/uL Absolute Nucleated RBC 0.000 (0.0-0.012) X10*3/uL Nucleated RBC % (auto) 0.0 (0.0-0.2) /100WBC Sodium 141 (135-145) mmol/L Potassium 3.7 (3.3-5.1) mmol/L Chloride 109 H (96-108) mmol/L Carbon Dioxide 25 (22-29) mmol/L Anion Gap 11 L (12-20) BUN 13 (9-16) mg/dL Creatinine 0.86 (0.5-1.4) mg/dL Estim Creat Clear Calc 113.6 Estimated GFR > 60 Random Glucose 94 (60-115) mg/dL Calcium 9.8 (8.4-10.2) mg/dL Troponin I High Sens 37.2 H 32.0 (<3.5-35.0) ng/L Influenza Type A (PCR) NEGATIVE (Negative) Influenza Type B (PCR) NEGATIVE (Negative) RSV RNA Qual (PCR) NEGATIVE (Negative) SARS-CoV-2 RNA (RT-PCR) NEGATIVE (Negative) Independent Interpretation I performed an independent interpretation of an: EKG and Plain X-Ray (normal ) Interpretation: Rate: 67 Rhythm: NSR [place]: left, LVH Normal P waves. Normal BOB. Normal QRS complex. ST T wave : no SRIKANTH, inverted t waves III qTC: 399 prior studies: q waves noted on prior ECG The study has been interpreted contemporaneously by me. . Radiology Impression Discussion of test interpretation with radiology: I have reviewed the radiologist's reading. External Record Review External record reviewed: Inpatient record Discharge Plan Discharge Clinical Impression: Atypical chest pain, Hypertension, uncontrolled Patient Disposition: Home, Self-Care Instructions: Chest Pain (ED), Hypertension (ED) Additional Instructions: we will call you with cardiology appointment. take the blood pressure medications. return for chest pain with exercise or exertion, fainting, increased shortness of breath or any other concerns. Le llamaremos con nish de cardiolog?a. iwona los medicamentos para la presi?n arterial. Regrese si tiene dolor en el pecho al hacer ejercicio o esfuerzo, desmayos, aumento de la dificultad para respirar o cualquier otra inquietud. Prescriptions: New lisinopril 5 mg tablet 5 mg PO DAILY Qty: 90 0RF No Action omeprazole magnesium [Prilosec OTC] 20 mg tablet,delayed release (DR/EC) 20 mg PO BID Qty: 14 0RF lisinopril 5 mg tablet 5 mg PO DAILY Qty: 30 3RF lisinopril 5 mg tablet 5 mg PO DAILY Qty: 90 0RF Referrals: Juliana Fischer, KNOBBER-C [Nurse Practitioner] - ([facility] office will call to arrange an appointment. ) Stand Alone Forms: Work/School Release Print Language: Kinyarwanda
[2023-10-09 10:59] LABS: Influenza A PCR NEGATIVE (Negative); Influenza B PCR NEGATIVE (Negative); Resp Syncy Virus RNA Qual PCR NEGATIVE (Negative); SARS COV2 PCR INHOUSE NEGATIVE (Negative)
[2023-10-09 13:04] VITALS: BP 150/96; PULSE 67; RESP 12; TEMP 37; O2SAT 98
[2023-10-09 13:06] VITALS: BP 135/90; PULSE 64; RESP 15; TEMP 36.6; O2SAT 100
[2023-10-09 13:07] VITALS: PULSE 61
[2023-10-09 14:00] VITALS: BP 122/72; PULSE 62; RESP 18; TEMP 36.5; O2SAT 98
--- NOTE | 2023-10-09 14:26 | MHC.CM.ED ---
Received case management consult from Dr Vizcarra. Patient needs cardiology follow up but doesn't have an established PCP. Has a new patient appointment in December with Dr Das. T/W spoke with Bekah of [facility]. Bekah will find an available appointment and call the patient. Dr Vizcarra aware. Continue to monitor for d/c needs.
== END 2023-10-09 15:01 | disposition home or self-care (01) ==
PROVIDERS: Emergency Provider Emergency Medicine
DX: R07.89 Other chest pain (principal); I10 Essential (primary) hypertension; Z91.148 Patient's other noncompliance with medication regimen for other reason; Z11.52 Encounter for screening for COVID-19; Z20.828 Contact with and (suspected) exposure to other viral communicable diseases
CPT/HCPCS: 0241U; 36415; 71046; 80048; 84484; 85025; 93005; 99284; 99285

== ENCOUNTER → 2023-10-09 09:38 | Outpatient (BNV) | payer OTHER, SELFPAY | PROVIDERS: Emergency Provider Emergency Medicine; Visit Provider Internal Medicine Cardiovascular Disease | DX: R07.9 Chest pain, unspecified (principal) | CPT/HCPCS: 93010 ==

== ENCOUNTER 2023-11-03 14:03 | Outpatient (AMB) | payer OTHER, SELFPAY ==
[2023-11-03 14:05] VITALS: BP 120/82; PULSE 70; BMI 34.0
--- NOTE | 2023-11-03 14:05 | MHC.OFFVIS ---
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 His symptoms also included subjective fever and night sweats and he ruled out for influenza, COVID, RSV. He was referred to Cardiology in follow-up. Today he presents for his cardiology consultation. Tells me that his symptoms have improved some since his ER visit on 10/09/2023. Had been experiencing sweats, fevers and a uncomfortable feeling in his chest when waking up in the morning. He admits to having some discomfort in his chest on other occasions as well. His description is vague even with the use of a interpreter for the deaf. No clear chest discomfort brought on by exertional activities. No shortness of breath, palpitations, lightheadedness, presyncope, syncope, falls, PND, orthopnea or edema. 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 He periodically will go to the gym and uses the bike and treadmill. Takes his meds as directed. Denies cocaine, marijuana, alcohol use. He does smoke cigarettes occasionally. He has no personal history of hyperlipidemia or diabetes. No known family history of heart disease. His mother has hypertension. [facility] Medical History Hypertension Gastroesophageal reflux disease Family History Mother Hypertension Social History Alcohol intake: former Patient Tobacco Use Status: Former Tobacco user Review of Systems Const Details: Night sweats All systems reviewed & are unremarkable except as noted in HPI and below ENT Denies dizziness Card Details: Uncomfortable feeling in chest occurring randomly Denies chest pain, Denies chest pain at rest, Denies chest pain with activity, Denies rapid heart rate, Denies pedal edema, Denies edema, Denies leg edema, Denies lightheadedness, Denies palpitations, Denies dyspnea, Denies dyspnea on exertion and Denies orthopnea Resp Denies cough, Denies dyspnea and Denies dyspnea on exertion GI Denies hematochezia and Denies change in stool character Musc Denies abnormal gait, Denies limited range of motion, Denies muscle cramps, Denies muscle weakness, Denies numbness, Denies radiating pain into limb, Denies stiffness and Denies tingling Neuro Denies abnormal gait, Denies dizziness, Denies numbness and Denies tingling Endo Denies palpitations Physical Exam Vital Signs: Last Vital Signs Pulse 70 11/03/23 14:05 BP 120/82 11/03/23 14:05 BMI result Body Mass Index 34.0 Const General: cooperative, healthy appearing, comfortable and no acute distress Orientation/consciousness: patient oriented x3 Neck Neck: Yes normal visual inspection Resp Effort & Inspection: normal respiratory effort Auscultation: clear to auscultation bilaterally, no crackles, no rales, no rhonchi and no wheezes Cardio Jugular venous distension: no JVD Rate: regular rate Rhythm: regular rhythm Heart sounds: S1 normal heart sound present, S2 normal heart sound present, no murmurs and no rubs Neuro General: patient oriented x3 Extrem General: Yes normal to inspection and No no pedal edema Psych Appearance: grossly normal Mental Status: mental status grossly normal Speech and movement: Normal speech and movement present Assessment & Plan Assessment & Plan (1) Chest discomfort: Code(s): R07.89 - Other chest pain Plan: Atypical sounding chest discomfort. No known history of CAD. ER evaluation on 10/09/2023 for symptoms of night sweats, fatigue and uncomfortable feeling in his chest. He ruled out for ACS. EKG showed sinus rhythm, minimal voltage for LVH, left axis, rate 67. Chest x-ray showed no active disease. Troponin levels 37.2 and 32. Today he reports that since that time his symptoms have improved some. His description of symptoms are vague and no clear chest discomfort brought on by exertion was noted. He does have cardiac risk factors of hypertension, obesity. He also does have a history of GERD which can contribute to noncardiac discomfort. For completeness will order an echocardiogram to assess for structural heart disease. Will check an exercise stress test to evaluate for any ischemia and blood pressure response to exercise. Cardiology follow-up 4-6 weeks, sooner if needed. Signs and symptoms of true angina reviewed with him. Emergency care if ever needed for symptoms. (2) Hypertension: Code(s): I10 - Essential (primary) hypertension Plan: History of hypertension. Has been on lisinopril for blood pressure control. Blood pressure today 120/82. No med changes made. Plan Time spent on chart review, documentation, interview and assessment Orders: Orders CA echo transthoracic complete Today DALY Millan I10 - Essential (primary) hypertension, R07.89 - Other chest pain CA stress test Today DALY Millan I10 - Essential (primary) hypertension, R07.89 - Other chest pain Medications: Changed From lisinopril 5 mg PO DAILY 30 tabs 3RF To lisinopril 10 mg PO DAILY Ilda Rios NP Discontinued lisinopril Discontinued Reason: Duplicate 5 mg PO DAILY 90 tabs 0RF lisinopril Discontinued Reason: Duplicate 5 mg PO DAILY 90 tabs 0RF Coding Level of Care Code New Pt Level 4 (73791) Diagnoses Chest discomfort R07.89 Hypertension I10 Time Spent (min) 28
== END 2023-11-03 14:40 | disposition home or self-care (01) ==
PROVIDERS: Visit Provider Nurse Practitioner Family
DX: R07.89 Other chest pain (principal); I10 Essential (primary) hypertension
CPT/HCPCS: 99204

== ENCOUNTER → 2023-11-03 14:03 | Outpatient (BNVA) | payer OTHER, SELFPAY | PROVIDERS: Visit Provider Nurse Practitioner Family | DX: R07.89 Other chest pain (principal); I10 Essential (primary) hypertension | CPT/HCPCS: 99202 ==

== ENCOUNTER → 2023-12-04 07:58 | Outpatient (REF) | payer OTHER, SELFPAY ==
--- NOTE | 2023-12-04 08:02 | CA_ITS ---
Acquisition Time: 2023-12-04 08:53:01 Total Exercise Time: 00:11:36 Test Indications: CHEST PAIN Medications: LISINOPRIL Protocol: MISTI Max HR: 153 BPM 85% of Pred: 178 BPM Max BP: 142/088 mmHG Max Work Load: 13.4 METS Exercise stress test exericse 11 min 36 sec of Misti protocol achieving 85% MPHR, without anginal symptoms, without arrhythmias, with normotenisve response to exercise, without EKG changes. Test reviewed with Dr. Lo. Referred By: Juliana Fischer Overread By: Taina Ward
--- NOTE | 2023-12-04 08:02 | CA_ITS ---
Transthoracic Echocardiogram Patient (Last, First, Middle): Reyes Garcia, Gender: Male Date of : 1980 Age: 43 Procedure Date: 12/04/2023 Procedure Type: Transthoracic Echocardiogram Location: OP Height: 162. 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 The visually estimated ejection fraction is between 55-60%. - No obvious valvular pathology seen on this study. Findings Left Ventricle Normal left ventricular cavity size. There is mildly increased left ventricular wall thickness. The left ventricular systolic function is normal. The visually estimated ejection fraction is between 55-60%. There is no evidence of regional wall motion abnormalities. Diastolic function is normal for age. LV peak GLS -17.2%. Right Ventricle Normal right ventricular cavity size and systolic function. Atria Both atria are normal in size. Aortic Valve There is a normal trileaflet aortic valve. There is no aortic valve stenosis. There is no aortic valve regurgitation. Mitral Valve The mitral valve appears normal. There is trace mitral valve regurgitation. There is no mitral valve stenosis. Pulmonic Valve The pulmonic valve is likely normal. Tricuspid Valve Normal tricuspid valve structure. There is trace tricuspid valve regurgitation. There is no evidence of pulmonary hypertension. Great Vessels The asc aorta is normal in size. Venous The inferior vena cava is normal in size and collapses greater than 50% with inspiration. Pericardium/Pleural There is no evidence of pericardial effusion. Prior Study Comparison No prior study available for comparison. Recommendations, Care & Conclusions No obvious valvular pathology seen on this study. Measurements 2D Linear Measurements IVSd: 1.07 0.6-0.9/0.6-1.0 cm LVIDd: 5.39 3.9-5.3/4.2-5.9 cm LVIDd Index: 2.78 2.4-3.2/2.2-3.1 cm/m2 LVIDs: 3.40 2.0-3.6 cm LVPWd: 1.01 0.7-1.1 cm LA Diam: 3.60 2.7-3.8/3.0-4.0 cm LAIDs Index: 1.86 1.5-2.3 cm/m2 LV Mass: 270.65 67-162/88-224 g LV Mass Index: 139.51 43-95/49-115 g/m2 LVOT Diam: 2.10 3.0+(-)1.3 cm 2D Systolic Function EF 4C: 52.30 >55% EF 2C: 59.60 >55% EF BiP: 54.30 >55% Mitral Valve MV Pk E: 0.97 MV PK A: 0.89 MV Decel Time: 276.00 E/A: 1.10 E'Lateral: 8.27 E'Medial: 5.44 E/E' Med: 17.70 E/E' Lat: 11.70 PHT: 81.00 MVA PHT: 2.72 Decel [place]ona: 3.50 Aortic Valve AoV Pk Mil: 1.22 AoV Mn Mil: 0.84 AoV VTI: 0.25 AoV Pk Grad: 6.00 Aov Mn Grad: 3.00 FRED Cont.VTI: 3.36 LVOT LVOT Pk Mil: 1.24 LVOT Mn Mil: 0.82 LVOT VTI: 0.24 LVOT Pk Grad: 6.00 LVOT Mn Grad: 3.00 LVOT Diam: 2.10 LVOT Area: 3.46 Diastolic Function MV Pk E: 0.97 MV Pk A: 0.89 E/A: 1.10 E'Medial: 5.44 E/E' Med: 17.70 E' Laterial: 8.27 E/E' Lat: 11.70 Right Ventricle TAPSE (mm): 20.90 TVS' Mil: 13.50 Tricuspid Valve TR Pk Mil: 1.71 TR Pk Grad: 12.00 RA Press: 3.00 RVSP: 15.00 Great Vessels Aorta Sinus of Valsalva: 4.30 2.0-3.5 cm Ao Asc: 3.70 2.1-3.4 cm Pulmonary Valve PV Pk Mil: 0.91 Peak PV Grad: 3.00 Updated in Other Vendor System with Status of Final Rayshawn Doshi MD electronically signed on 12/04/2023 10:31:28 AM with status of Final
== END ==
LOC: HO.CARD 07:58
PROVIDERS: Visit Provider Nurse Practitioner Family
DX: R07.89 Other chest pain (principal); I10 Essential (primary) hypertension
CPT/HCPCS: 93017; 93306; 93356

== ENCOUNTER → 2023-12-04 08:02 | Outpatient (BNV) | payer OTHER, SELFPAY | PROVIDERS: Visit Provider Internal Medicine | DX: R07.89 Other chest pain (principal) | CPT/HCPCS: 93016; 93018; 93350; 93356 ==

== ENCOUNTER 2024-01-11 14:24 | Outpatient (AMB) | payer OTHER, SELFPAY ==
[2024-01-11 14:25] VITALS: BP 122/80; PULSE 65; BMI 34.1
--- NOTE | 2024-01-11 14:25 | MHC.OFFVIS ---
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 His symptoms also included subjective fever and night sweats and he ruled out for influenza, COVID, RSV. He was referred to Cardiology in follow-up. On last visit a echocardiogram and exercise stress test were ordered. Today he reports he has been doing generally well since his last visit. He has not had recurrent chest discomfort like previously reported. No clear chest discomfort brought on by exertional activities. No shortness of breath, palpitations, lightheadedness, presyncope, syncope, falls, PND, orthopnea or edema. 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 He periodically will go to the gym and uses the bike and treadmill. Takes his meds as directed. Denies cocaine, marijuana, alcohol use. He does smoke cigarettes occasionally. [facility] Medical History Hypertension Gastroesophageal reflux disease Family History Mother Hypertension Social History Alcohol intake: former Patient Tobacco Use Status: Former Tobacco user Review of Systems Const All systems reviewed & are unremarkable except as noted in HPI and below ENT Denies dizziness Card Denies chest pain, Denies chest pain at rest, Denies chest pain with activity, Denies rapid heart rate, Denies pedal edema, Denies edema, Denies leg edema, Denies lightheadedness, Denies palpitations, Denies dyspnea, Denies dyspnea on exertion and Denies orthopnea Resp Denies cough, Denies dyspnea and Denies dyspnea on exertion GI Denies hematochezia and Denies change in stool character Musc Denies abnormal gait, Denies limited range of motion, Denies muscle cramps, Denies muscle weakness, Denies numbness, Denies radiating pain into limb, Denies stiffness and Denies tingling Neuro Denies abnormal gait, Denies dizziness, Denies numbness and Denies tingling Endo Denies palpitations Physical Exam Vital Signs: Last Vital Signs Pulse 65 01/11/24 14:25 BP 122/80 01/11/24 14:25 BMI result Body Mass Index 34.1 Const General: cooperative, healthy appearing, comfortable and no acute distress Orientation/consciousness: patient oriented x3 Neck Neck: Yes normal visual inspection Resp Effort & Inspection: normal respiratory effort Auscultation: clear to auscultation bilaterally, no crackles, no rales, no rhonchi and no wheezes Cardio Jugular venous distension: no JVD Rate: regular rate Rhythm: regular rhythm Heart sounds: S1 normal heart sound present, S2 normal heart sound present, no murmurs and no rubs Neuro General: patient oriented x3 Extrem General: Yes normal to inspection and No no pedal edema Psych Appearance: grossly normal Mental Status: mental status grossly normal Speech and movement: Normal speech and movement present Assessment & Plan Assessment & Plan (1) Chest discomfort: Code(s): R07.89 - Other chest pain Category: Medical Plan: Atypical sounding chest discomfort. No known history of CAD. ER evaluation on 10/09/2023 for symptoms of night sweats, fatigue and uncomfortable feeling in his chest. He ruled out for ACS. EKG showed sinus rhythm, minimal voltage for LVH, left axis, rate 67. Chest x-ray showed no active disease. Troponin levels 37.2 and 32. He underwent an exercise stress test on 12/04/2023 with exercise 11.5 minutes with no anginal symptoms and no EKG changes of ischemia. An echocardiogram done 12/04/2023 showed EF 55-60%, no valve abnormalities and no reported regional wall motion abnormality. Today he reports that he has been doing well, prior chest discomfort has improved. No evidence that his symptom is cardiac in nature. He does have cardiac risk factors of hypertension, obesity. He also does have a history of GERD which can contribute to noncardiac discomfort. Signs and symptoms of true angina reviewed with him. Emergency care if ever needed for symptoms. Cardiology follow-up as needed (2) Hypertension: Code(s): I10 - Essential (primary) hypertension Category: Medical Plan: History of hypertension. Has been on lisinopril for blood pressure control. He believes lisinopril is making it hard for him to sleep. This med was ordered by his PCP. Instructed to further discuss with PCP. Blood pressure well controlled at present. No med changes made. Plan Time spent on chart review, documentation, interview and assessment Coding Level of Care Code Est Pt Level 3 (14478) Diagnoses Chest discomfort R07.89 Hypertension I10 Time Spent (min) 24
== END 2024-01-11 14:49 | disposition home or self-care (01) ==
PROVIDERS: Visit Provider Nurse Practitioner Family
DX: R07.89 Other chest pain (principal); I10 Essential (primary) hypertension
CPT/HCPCS: 99213

== ENCOUNTER → 2024-01-11 14:24 | Outpatient (BNVA) | payer OTHER, SELFPAY | PROVIDERS: Visit Provider Nurse Practitioner Family | DX: I10 Essential (primary) hypertension (principal); R07.89 Other chest pain | CPT/HCPCS: 99212 ==